=== PATIENT | female | born 1960 | race Asian ===

== ENCOUNTER 2020-02-25 06:54 | Day surgery (SDC) | payer OTHER, SELFPAY ==
[~2020-02-25] VITALS: Ht 160 cm; Wt 77.1 kg
[2020-02-25] MEDS ORDERED: fentaNYL citrate 0.05 MG/ML VIAL ONE (08:41)
[2020-02-25] MEDS ORDERED: MIDAZOLAM 5 MG/5 ML VIAL ONE (08:41)
[2020-02-25] MEDS ORDERED: diphenhydrAMINE 50 MG/ML VIAL ONE (08:42)
[2020-02-25] MEDS: MIDAZOLAM 2 MG/2 ML VIAL IVP ONE (09:09)
[2020-02-25] MEDS: fentaNYL citrate 0.05 MG/ML VIAL IVP ONE (09:10)
[2020-02-25] MEDS: LIDOCAINE 2% 100 MG/5 ML UJET TP ONE (09:12)
== END 2020-02-25 10:03 | disposition home or self-care (01) ==
LOC: MDS 06:54 → MMU 06:55 → MDS 10:03
PROVIDERS: ATTEND Internal Medicine Gastroenterology
DX: Z12.11 Encounter for screening for malignant neoplasm of colon (principal); K63.5 Polyp of colon; Z86.010 Personal history of colon polyps; I10 Essential (primary) hypertension; Z20.828 Contact with and (suspected) exposure to other viral communicable diseases
CPT/HCPCS: 45380; 88305; J2250; J3010; U0003; J1200